=== PATIENT | female | born 1950 | race Caucasian/White ===

== ENCOUNTER 2017-05-22 21:42 | Inpatient (IN) | payer OTHER, MEDICARE ==
[~2017-05-22] VITALS: Ht 170.2 cm; Wt 86.2 kg
[2017-05-22] MEDS ORDERED: INSHNI SQ (22:29)
[2017-05-22] MEDS ORDERED: INSU100I SQ (22:29)
[2017-05-22] MEDS ORDERED: FRS/40 PO (22:29)
[2017-05-22] MEDS ORDERED: GABA-112 PO (22:29)
[2017-05-22] MEDS ORDERED: AMLO-110 PO (22:29)
[2017-05-22] MEDS ORDERED: ATOR-24 PO (22:29)
[2017-05-22] MEDS ORDERED: SEVE800T7 PO (22:33)
[2017-05-22] MEDS ORDERED: PANT40TA PO (22:33)
[2017-05-22] MEDS ORDERED: SPIR25TA PO (22:33)
[2017-05-22] MEDS ORDERED: HYDR-4717 PO (22:33)
[2017-05-22] MEDS ORDERED: EPGI10M SQ (22:33)
[2017-05-22] MEDS ORDERED: LEVO25TA5 PO (22:33)
[2017-05-22] MEDS ORDERED: LACT10SO17 PO (22:39)
[2017-05-22] MEDS ORDERED: [UNRECOGNIZED DRUG - OTHER] PO (22:39)
[2017-05-22] MEDS ORDERED: KFL/250 PO (22:39)
[2017-05-22] MEDS ORDERED: LORA-741 PO (22:39)
[2017-05-22] MEDS ORDERED: ONDA4TAB46 PO (22:39)
[2017-05-22] MEDS ORDERED: TRAM-10 PO (22:39)
[2017-05-22] MEDS ORDERED: CEFTRIAXONE SOD INJ 1 GM ADDVIAL IV STA (22:44)
[2017-05-22 23:43] LABS: BASO % 0.2 %; BASO ABS # 0.01 K/uL (0-0.2); COMPLETE YES; EOS % 10.4 %; HEMATOCRIT 29.7 % (37-47); IG% 1.1 %; LYMPH % 10.6 %; MEAN CELL VOLUME 96.4 fL (80-100); MEAN CORPUSCULAR HEMOGLOBIN 32.8 pg (25-34); MEAN PLATELET VOLUME 9.8 fL (7.4-10.4); MONO % 7.2 %; NEUT % 70.5 %; PLATELET COUNT 120 K/uL (130-400); RED BLOOD COUNT 3.08 M/uL (4.2-5.4); WHITE BLOOD COUNT 5.66 K/uL (4.8-10.8)
--- NOTE | 2017-05-22 23:48 | EMERGENCY ROOM VISIT NOTE ---
ED Visit Note First contact with patient: 22:30 I have seen and examined this patient with Naina Bernard and generally agree with the treatment plan as discussed. Current/Historical Medications Scheduled Amlodipine (Norvasc), 5 MG PO DAILY Atorvastatin (Lipitor), 40 MG PO QPM Cephalexin Monohydrate (Keflex), 1 TABS PO Q6 Epoetin Thomas (Procrit), SQ ON HOLD Furosemide (Lasix), 40 MG PO DAILY Gabapentin (Neurontin), 100 MG PO QAM Hydralazine Hcl (Apresoline), 100 MG PO TID Insulin Human NPH (Humulin N), 5 UNITS SQ BID Levothyroxine Sodium (Levothyroxine Sodium), 1 TAB PO DAILY Pantoprazole (Protonix), 40 MG PO DAILY Sevelamer Carbonate (Renvela), 1 TAB PO TIDM Spironolactone (Aldactone), 25 MG PO QAM [Careone Antacid], 1 DOSE PO PRN Scheduled PRN Insulin Lispro (Human) (Humalog), UNITS SQ BID PRN for bsg >200 Lactulose (Chronulac), 30 ML PO DAILY PRN for Constipation Lorazepam (Ativan), 0.5 MG PO QID PRN for Anxiety Ondansetron Hcl (Zofran), 4 MG PO Q8 PRN for Nausea Tramadol (Ultram), 50-100 MG PO Q4H PRN for Pain Allergies Coded Allergies: Nitrofurantoin (Verified Allergy, Unknown, UNKNOWN, 05/22/17) Sulfa Antibiotics (Verified Allergy, Unknown, UNKNOWN, 05/22/17) Vancomycin (Verified Allergy, Unknown, UNKNOWN, 05/22/17) Uncoded Allergies: GLUTEIN (Adverse Reaction, Unknown, FROM CELIAC DISEASE, 05/22/17) Vital Signs Date Time Temp Pulse Resp B/P (MAP) Pulse Ox O2 Delivery O2 Flow Rate FiO2 05/22/17 22:06 37.0 73 18 155/60 96 Room Air Laboratory Results 05/22/17 23:31 Red Blood Count 3.08, Mean Corpuscular Volume 96.4, Mean Corpuscular Hemoglobin 32.8, Mean Corpuscular Hemoglobin Concent 34.0, Mean Platelet Volume 9.8, Neutrophils (%) (Auto) 70.5, Lymphocytes (%) (Auto) 10.6, Monocytes (%) (Auto) 7.2, Eosinophils (%) (Auto) 10.4, Basophils (%) (Auto) 0.2, Neutrophils # (Auto ) 3.99, Lymphocytes # (Auto) 0.60, Monocytes # (Auto) 0.41, Eosinophils # (Auto ) 0.59, Basophils # (Auto) 0.01 Test 05/22/17 23:31 White Blood Count 5.66 K/uL (4.8-10.8) Red Blood Count 3.08 M/uL (4.2-5.4) Hemoglobin 10.1 g/dL (12.0-16.0) Hematocrit 29.7 % (37-47) Mean Corpuscular Volume 96.4 fL (80-100) Mean Corpuscular Hemoglobin 32.8 pg (25-34) Mean Corpuscular Hemoglobin Concent 34.0 g/dl (32-36) Platelet Count 120 K/uL (130-400) Mean Platelet Volume 9.8 fL (7.4-10.4) Neutrophils (%) (Auto) 70.5 % Lymphocytes (%) (Auto) 10.6 % Monocytes (%) (Auto) 7.2 % Eosinophils (%) (Auto) 10.4 % Basophils (%) (Auto) 0.2 % Neutrophils # (Auto) 3.99 K/uL (1.4-6.5) Lymphocytes # (Auto) 0.60 K/uL (1.2-3.4) Monocytes # (Auto) 0.41 K/uL (0.11-0.59) Eosinophils # (Auto) 0.59 K/uL (0-0.5) Basophils # (Auto) 0.01 K/uL (0-0.2) RDW Standard Deviation 45.9 fL (36.4-46.3) RDW Coefficient of Variation 13.2 % (11.5-14.5) Immature Granulocyte % (Auto) 1.1 % Immature Granulocyte # (Auto) 0.06 K/uL (0.00-0.02) Medications Administered Medications (Trade) Dose Ordered Sig/Joe Route Start Time Stop Time Status Last Admin Dose Admin Ceftriaxone Sodium (Rocephin Inj) 1 gm NOW STAT IV 05/22/17 22:44 05/22/17 22:50 DC 05/22/17 23:36 1 GM Departure Information Referrals Mau Vaca M.D. (PCP) Patient Instructions [facility]
[2017-05-23 00:03] LABS: BUN/CREATININE RATIO 33.3 (10-20); CALCIUM 8.2 mg/dl (8.5-10.1); CREATININE 1.67 mg/dl (0.60-1.20); POTASSIUM 4.4 mmol/L (3.5-5.1)
[2017-05-23 00:06] LABS: ALB/GLOB RATIO 0.9 (0.9-2)
[2017-05-23 00:24] LABS: PARTIAL THROMBOPLASTIN RATIO 0.9; PROTHROMBIN TIME (PATIENT) 11.2 SECONDS (9.0-12.0)
[2017-05-23] MEDS ORDERED: LORAZEPAM 0.5 MG TAB PO PRN (00:30)
[2017-05-23] MEDS ORDERED: TRAMADOL HCL 50 MG TAB PO PRN (00:30)
[2017-05-23] MEDS ORDERED: ACETAMINOPHEN 325 MG TAB PO PRN (00:30)
[2017-05-23] MEDS ORDERED: MoRPHine SULFATE 4 MG/ML 1 ML CARP\\VIAL IV PRN (00:30)
[2017-05-23] MEDS ORDERED: ALUMINUM/MAGNESIUM/SIMETH (MAALOX MAX) 30 ML UDC PO PRN (00:30)
[2017-05-23] MEDS ORDERED: MAGNESIUM HYDROXIDE SUSP 30 ML UDC PO PRN (00:30)
[2017-05-23] MEDS ORDERED: LACTULOSE SYRUP 20 GM/30 ML UDC PO PRN (00:30)
--- NOTE | 2017-05-23 00:50 | EMERGENCY ROOM VISIT NOTE ---
History First contact with patient: 22:30 Chief Complaint: LEG PAIN,LEG INJURY Stated Complaint: RT LEG RED History of Present Illness The patient is a 66 year old female who presents to the Emergency Room with complaints of worsening right lower leg infection who has a history of recurrent saline as to this leg. Patient just moved to this area from [place]. Patient states normally states vancomycin for the infection to her right lower leg. Patient states couple months ago she got nauseous from vancomycin but is not allergic. She states she can take this antibiotic. Patient saw her new family care doctor the other day was started on Keflex. Patient states since then the infection has gotten much worse. Patient states she feels fatigued. Patient denies chest pain, dyspnea, fever, chills, cough, congestion, vomiting, diarrhea, headache, cold symptoms. She believes her tetanus is up-to-date. Review of Systems See HPI for pertinent positives & negatives. A total of 10 systems reviewed and were otherwise negative. Past Medical/Surgical History Medical Problems: (1) Cellulitis Diabetes, cirrhosis, cholecystectomy, toe surgery, hysterectomy, cataract, hemorrhoids, shingles, neuropathy, depression, incontinence, anxiety, insomnia, renal failure, anemia Social History Smoking Status: Never Smoker Smokeless Tobacco Use: No Alcohol Use: none Drug Use: none Marital Status: single Current/Historical Medications Scheduled Amlodipine (Norvasc), 5 MG PO DAILY Atorvastatin (Lipitor), 40 MG PO QPM Cephalexin Monohydrate (Keflex), 1 TABS PO Q6 Epoetin Thomas (Procrit), SQ ON HOLD Furosemide (Lasix), 40 MG PO DAILY Gabapentin (Neurontin), 100 MG PO QAM Hydralazine Hcl (Apresoline), 100 MG PO TID Insulin Human NPH (Humulin N), 5 UNITS SQ BID Levothyroxine Sodium (Levothyroxine Sodium), 1 TAB PO DAILY Pantoprazole (Protonix), 40 MG PO DAILY Sevelamer Carbonate (Renvela), 1 TAB PO TIDM Spironolactone (Aldactone), 25 MG PO QAM [Careone Antacid], 1 DOSE PO PRN Scheduled PRN Insulin Lispro (Human) (Humalog), UNITS SQ BID PRN for bsg >200 Lactulose (Chronulac), 30 ML PO DAILY PRN for Constipation Lorazepam (Ativan), 0.5 MG PO QID PRN for Anxiety Ondansetron Hcl (Zofran), 4 MG PO Q8 PRN for Nausea Tramadol (Ultram), 50-100 MG PO Q4H PRN for Pain Physical Exam Vital Signs Date Time Temp Pulse Resp B/P (MAP) Pulse Ox O2 Delivery O2 Flow Rate FiO2 05/23/17 00:23 67 05/22/17 22:06 37.0 73 18 155/60 96 Room Air Physical Exam VITALS: Vitals are noted on the nurse's note and reviewed by myself. Vital signs stable. GENERAL: Pleasant female, in no acute distress, nondiaphoretic, well-developed well-nourished. SKIN: The skin was without rashes, erythema, edema, or bruising. There is no tenting of the skin. Capillary reflex less than 2 seconds. HEAD: Normocephalic atraumatic. EARS: External auditory canals clear, tympanic membranes pearly dos santos without erythema or effusion bilaterally. EYES: Pupils equal round and reactive to light and accommodation. Conjunctivae without injection, sclerae without icterus. Extraocular movements intact. NOSE: Patent, turbinates without inflammation or discharge. MOUTH: Mucous membranes moist. Pharynx without erythema or exudate. Uvula midline. Airway patent. Tongue does not deviate. NECK: Supple without nuchal rigidity. No lymphadenopathy. No thyromegaly. Cervical spine is nontender. No JVD. HEART: Regular rate and rhythm LUNGS: Clear to auscultation bilaterally without wheezes, rales or rhonchi. No dullness to percussion. No retractions or accessory muscle use. ABDOMEN: Positive bowel sounds x 4. Normal tympanic percussion. Soft, protuberant, obese, nontender, without masses or organomegaly. Ellis sign negative. No guarding or rebound tenderness. MUSCULOSKELETAL: No muscle atrophy, edema noted. Right lower leg with abrasion present with surrounding erythema concerning for cellulitis not involving the foot. Pedal pulses +2 equal present bilaterally. Venous stasis dermatitis unchanged per family and patient. NEURO: Patient was alert and oriented to person place and time. Normal sensation to light and sharp touch. No focal neurological deficits. Medical Decision & Procedures Laboratory Results 05/22/17 23:31 Red Blood Count 3.08, Mean Corpuscular Volume 96.4, Mean Corpuscular Hemoglobin 32.8, Mean Corpuscular Hemoglobin Concent 34.0, Mean Platelet Volume 9.8, Neutrophils (%) (Auto) 70.5, Lymphocytes (%) (Auto) 10.6, Monocytes (%) (Auto) 7.2, Eosinophils (%) (Auto) 10.4, Basophils (%) (Auto) 0.2, Neutrophils # (Auto ) 3.99, Lymphocytes # (Auto) 0.60, Monocytes # (Auto) 0.41, Eosinophils # (Auto ) 0.59, Basophils # (Auto) 0.01 05/22/17 23:31 Test 05/22/17 23:31 05/22/17 23:32 White Blood Count 5.66 K/uL (4.8-10.8) Red Blood Count 3.08 M/uL (4.2-5.4) Hemoglobin 10.1 g/dL (12.0-16.0) Hematocrit 29.7 % (37-47) Mean Corpuscular Volume 96.4 fL (80-100) Mean Corpuscular Hemoglobin 32.8 pg (25-34) Mean Corpuscular Hemoglobin Concent 34.0 g/dl (32-36) Platelet Count 120 K/uL (130-400) Mean Platelet Volume 9.8 fL (7.4-10.4) Neutrophils (%) (Auto) 70.5 % Lymphocytes (%) (Auto) 10.6 % Monocytes (%) (Auto) 7.2 % Eosinophils (%) (Auto) 10.4 % Basophils (%) (Auto) 0.2 % Neutrophils # (Auto) 3.99 K/uL (1.4-6.5) Lymphocytes # (Auto) 0.60 K/uL (1.2-3.4) Monocytes # (Auto) 0.41 K/uL (0.11-0.59) Eosinophils # (Auto) 0.59 K/uL (0-0.5) Basophils # (Auto) 0.01 K/uL (0-0.2) RDW Standard Deviation 45.9 fL (36.4-46.3) RDW Coefficient of Variation 13.2 % (11.5-14.5) Immature Granulocyte % (Auto) 1.1 % Immature Granulocyte # (Auto) 0.06 K/uL (0.00-0.02) Prothrombin Time 11.2 SECONDS (9.0-12.0) Prothromb Time International Ratio 1.0 (0.9-1.1) Activated Partial Thromboplast Time 24.5 SECONDS (21.0-31.0) Partial Thromboplastin Ratio 0.9 Anion Gap 8.0 mmol/L (3-11) Est Creatinine Clear Calc Drug Dose 36.5 ml/min Estimated GFR () 36.1 Estimated GFR (Non- 31.1 BUN/Creatinine Ratio 33.3 (10-20) Calcium Level 8.2 mg/dl (8.5-10.1) Total Bilirubin 0.3 mg/dl (0.2-1) Aspartate Amino Transf (AST/SGOT) 17 U/L (15-37) Alanine Aminotransferase (ALT/SGPT) 20 U/L (12-78) Alkaline Phosphatase 112 U/L (45-117) Total Protein 7.0 gm/dl (6.4-8.2) Albumin 3.3 gm/dl (3.4-5.0) Globulin 3.7 gm/dl (2.5-4.0) Albumin/Globulin Ratio 0.9 (0.9-2) Bedside Lactic Acid Venous 1.13 mmol/L (0.90-1.70) Medications Administered Medications (Trade) Dose Ordered Sig/Joe Route Start Time Stop Time Status Last Admin Dose Admin Ceftriaxone Sodium (Rocephin Inj) 1 gm NOW STAT IV 05/22/17 22:44 05/22/17 22:50 DC 05/22/17 23:36 1 GM ED Course Prior records reviewed and summarized as above. Triage Nursing notes reviewed. Additional history obtained from family The patient's history was concerning for swelling and redness of the skin. Differential diagnosis: Etiologies such as cellulitis, abscess, MRSA infection, DVT, necrotizing fasciitis, dermatitis, drug eruption, as well as others were entertained.. Physical examination: The physical examination was consistent with cellulitis ER treatment provided: Rocephin, vancomycin. Patient states she is not allergic to vancomycin. On reassessment the patient felt better. Diagnostics interpreted by me: The labs revealed mild anemia. Slightly elevated creatinine Imaging studies: Negative for DVT and Ascites Consultation: A consultation was placed with Dr Young, hospitalist. The case was discussed and diagnostics were reviewed. The patient was evaluated in the ER for further treatment. I had the confidential secretary contact the other hospitals for the patient's medical history as she's never been here before. There was no response. This appears to be isolated cellulitis he was failed outpatient treatment and symptoms of gotten worse. Patient will be evaluated by medicine. A wound culture was taken and sent. Patient no leukocytosis. She is afebrile. Patient has a history of recurrent cellulitis to this leg. She normally requires IV antibiotics. By the evaluation outlined above emergent etiologies such as abscess, necrotizing fasciitis, DVT, as well as others were deemed relatively unlikely. The pt informed about the findings as listed above. All questions were answered and pleased with the treatment. Case reviewed with my attending. Medical Decision As above Medication Reconcilliation Current Medication List: was personally reviewed by me Blood Pressure Screening Patient's blood pressure: Elevated blood pressure Blood pressure disposition: Elevated BP felt to be situational, Referred to PCP Impression Primary Impression: Cellulitis of right lower leg Additional Impression: Failure of outpatient treatment Departure Information Dispostion Being Evaluated By Hospitalist Condition FAIR Referrals Mau Vaca M.D. (PCP) Patient Instructions [facility] Problem Qualifiers
--- NOTE | 2017-05-23 01:09 | History and Physical ---
History & Physical Date & Time of Service: May 23, 2017 at 00:44 Chief Complaint: Rt Leg Red Primary Care Physician: Mau Vaca M.D. History of Present Illness Source: patient 66 y/o F Complex medical history includes HTN, CKD III, HPL, DMII, anemia, CHF, Neuropathy, cirrhosis with ascites. Pt relocated from [place] in March and has not previously attended our facility. She had visited her new PCP earlier in the week due to cellulitis on her RLE. She was placed on Keflex, however, the cellulitis has spread over the majority of her distal RLE. She denies any fevers or rigors. Past Medical/Surgical History 1) HTN 2) HPL 3) CKD III 4) DM II 5) Neuropathy 6) CHF - unspecified 7) Cirrhosis with ascites 8) Chronic unstable gait 9) Hypothyroidism 10) Anemia Surgical: Hysterectomy Cholecystectomy Cataracts Family History Noncontributory Social History Smoking Status: Never Smoker Allergies Coded Allergies: Nitrofurantoin (Verified Allergy, Unknown, UNKNOWN, 05/22/17) Sulfa Antibiotics (Verified Allergy, Unknown, UNKNOWN, 05/22/17) Vancomycin (Verified Allergy, Unknown, UNKNOWN, 05/22/17) Uncoded Allergies: GLUTEIN (Adverse Reaction, Unknown, FROM CELIAC DISEASE, 05/22/17) Home Medications Scheduled Amlodipine (Norvasc), 5 MG PO DAILY Atorvastatin (Lipitor), 40 MG PO QPM Cephalexin Monohydrate (Keflex), 1 TABS PO Q6 Epoetin Thomas (Procrit), SQ ON HOLD Furosemide (Lasix), 40 MG PO DAILY Gabapentin (Neurontin), 100 MG PO QAM Hydralazine Hcl (Apresoline), 100 MG PO TID Insulin Human NPH (Humulin N), 5 UNITS SQ BID Levothyroxine Sodium (Levothyroxine Sodium), 1 TAB PO DAILY Pantoprazole (Protonix), 40 MG PO DAILY Sevelamer Carbonate (Renvela), 1 TAB PO TIDM Spironolactone (Aldactone), 25 MG PO QAM [Careone Antacid], 1 DOSE PO PRN Scheduled PRN Insulin Lispro (Human) (Humalog), UNITS SQ BID PRN for bsg >200 Lactulose (Chronulac), 30 ML PO DAILY PRN for Constipation Lorazepam (Ativan), 0.5 MG PO QID PRN for Anxiety Ondansetron Hcl (Zofran), 4 MG PO Q8 PRN for Nausea Tramadol (Ultram), 50-100 MG PO Q4H PRN for Pain Review of Systems Constitutional: No fever, No chills, No sweats Eyes: No worsening of vision ENT: No hearing loss, No unusual epistaxis, No nasal symptoms Respiratory: No cough, No wheezing Cardiovascular: No chest pain Abdomen: No pain, No nausea, No vomiting Musculoskeletal: + problem reported (RLE pain), No joint pain, No muscle pain Genitourinary - Female: No dysuria, No urinary frequency, No urinary urgency Neurologic: No memory loss, No paralysis, No weakness Psychiatric: No depression symptoms Endocrine: No fatigue Hematologic / Lymphatic: No abnormal bleeding/bruising Integumentary: + problem reported (Cellulitis as above) Allergic / Immunologic: No environmental allergies Physical Exam Vital Signs Date Time Temp Pulse Resp B/P (MAP) Pulse Ox O2 Delivery O2 Flow Rate FiO2 05/22/17 22:06 37.0 73 18 155/60 96 Room Air General Appearance: WD/WN, no apparent distress Head: normocephalic ENT: normal ENT inspection, pharynx normal Neck: supple, no JVD Respiratory/Chest: chest non-tender, lungs clear, normal breath sounds Cardiovascular: no edema, no gallop, no JVD, + systolic murmur, + pertinent finding (Prominent click and slight systolic murmur - frequent PVCs) Abdomen/GI: normal bowel sounds, non tender, + pertinent finding (Soft/ distended abdomen ) Back: normal inspection, no CVA tenderness, no muscle spasm Extremities/Musculoskelatal: + pertinent finding (No edema - muscle wasting present - erythema of RLE - ) Neurologic/Psych: senior estimator II-XII nml as tested, no motor/sensory deficits, alert, normal mood/affect, normal reflexes, oriented x 3 Skin: + pertinent finding (RLE cellulitis - sparing foot) Diagnostics Laboratory Results Results Past 24 Hours Test 05/22/17 23:31 05/22/17 23:32 Range/Units White Blood Count 5.66 4.8-10.8 K/uL Red Blood Count 3.08 4.2-5.4 M/uL Hemoglobin 10.1 12.0-16.0 g/dL Hematocrit 29.7 37-47 % Mean Corpuscular Volume 96.4 80-100 fL Mean Corpuscular Hemoglobin 32.8 25-34 pg Mean Corpuscular Hemoglobin Concent 34.0 32-36 g/dl Platelet Count 120 130-400 K/uL Mean Platelet Volume 9.8 7.4-10.4 fL Neutrophils (%) (Auto) 70.5 % Lymphocytes (%) (Auto) 10.6 % Monocytes (%) (Auto) 7.2 % Eosinophils (%) (Auto) 10.4 % Basophils (%) (Auto) 0.2 % Neutrophils # (Auto) 3.99 1.4-6.5 K/uL Lymphocytes # (Auto) 0.60 1.2-3.4 K/uL Monocytes # (Auto) 0.41 0.11-0.59 K/uL Eosinophils # (Auto) 0.59 0-0.5 K/uL Basophils # (Auto) 0.01 0-0.2 K/uL RDW Standard Deviation 45.9 36.4-46.3 fL RDW Coefficient of Variation 13.2 11.5-14.5 % Immature Granulocyte % (Auto) 1.1 % Immature Granulocyte # (Auto) 0.06 0.00-0.02 K/uL Prothrombin Time 11.2 9.0-12.0 SECONDS Prothromb Time International Ratio 1.0 0.9-1.1 Activated Partial Thromboplast Time 24.5 21.0-31.0 SECONDS Partial Thromboplastin Ratio 0.9 Sodium Level 144 136-145 mmol/L Potassium Level 4.4 3.5-5.1 mmol/L Chloride Level 110 98-107 mmol/L Carbon Dioxide Level 26 21-32 mmol/L Anion Gap 8.0 3-11 mmol/L Blood Urea Nitrogen 56 7-18 mg/dl Creatinine 1.67 0.60-1.20 mg/dl Est Creatinine Clear Calc Drug Dose 36.5 ml/min Estimated GFR () 36.1 Estimated GFR (Non- 31.1 BUN/Creatinine Ratio 33.3 10-20 Random Glucose 114 70-99 mg/dl Calcium Level 8.2 8.5-10.1 mg/dl Total Bilirubin 0.3 0.2-1 mg/dl Aspartate Amino Transf (AST/SGOT) 17 15-37 U/L Alanine Aminotransferase (ALT/SGPT) 20 12-78 U/L Alkaline Phosphatase 112 45-117 U/L Total Protein 7.0 6.4-8.2 gm/dl Albumin 3.3 3.4-5.0 gm/dl Globulin 3.7 2.5-4.0 gm/dl Albumin/Globulin Ratio 0.9 0.9-2 Bedside Lactic Acid Venous 1.13 0.90-1.70 mmol/L Microbiology Results 05/22/17 Blood Culture, Received Pending 05/22/17 Blood Culture, Received Pending 05/22/17 Gram Stain, Received Pending 05/22/17 Wound Culture, Received Pending Impression Assessment and Plan 66 y/o F Complex medical history includes HTN, CKD III, HPL, anemia, DMII, CHF, Neuropathy, cirrhosis with ascites. Pt relocated from [place] in March and has not previously attended our facility. She had visited her new PCP earlier in the week due to cellulitis on her RLE. She was placed on Keflex, however, the cellulitis has spread over the majority of her distal RLE. She denies any fevers or rigors. 1) Cellulitis - Placed on Vanc and Ceftriaxone - area delineated 2) CHF - unspecified type/severity - Pt is euvolemic without crackles, JVD or edema on admission - cont Lasix, Aldactone. 3) CKD - technically stage 3 - it is noted that she requires Sevelamer and Epo presently - will trend BMP with admin of Vanc - she has previously tolerated. 4) DM II - placed on SS 5) Cirrhosis w/ascites - likely [place] - cont Lasix, Aldactone. 6) Neuropathy - cont Kit 7) Anemia - Hb possibly at baseline - trend - takes monthly Epo Full code - Heparin prophylaxis Total time for this admit including review of labs, meds - discussion with pt and ER attending - 37 min We are pending records from [place] at time of admission Level of Care Med/Surg Resuscitation Status FULL RESUSCITATION VTE Prophylaxis VTE Risk Assessment Done? Y/N: Yes Risk Level: Moderate Given or contraindicated: Unfractionated heparin SQ
[2017-05-23 02:18] VITALS: BP 170/70; PULSE 65; TEMP 36.7; O2SAT 94; Ht 170.2 cm; Wt 86.2 kg
[2017-05-23] MEDS ORDERED: POLYETHYLENE (MIRALAX) 17 GM PACK PO PRN (02:30)
[2017-05-23] MEDS ORDERED: DAPTOMYCIN CONSULT ACTIVE PRN ×2 (03:45)
[2017-05-23] MEDS: DAPTOmycin IV 350 MG in SYRINGE 0 ML IV SCH (04:56)
[2017-05-23] MEDS: LEVOTHYROXINE 25 MCG TAB PO SCH (04:57)
[2017-05-23] MEDS: HEPARIN SOD 5000 UNIT/0.5 ML CARP SQ SCH ×3 (05:01→21:14)
--- NOTE | 2017-05-23 07:08 | DIAGNOSTIC IMAGING REPORT ---
RIGHT LOWER EXTREMITY VENOUS DOPPLER HISTORY: right leg swelling, ? DVT COMPARISON STUDY: None. FINDINGS: There is normal compressibility, flow, and augmentation within the right lower extremity deep venous system. IMPRESSION: No DVT within the right lower extremity Electronically signed by: Hilton Lee M.D. 05/23/2017 7:07 AM Dictated Date/Time: 05/23/2017 7:07 AM
[2017-05-23 07:11] VITALS: BP 151/53; PULSE 60; TEMP 36.6; O2SAT 92
--- NOTE | 2017-05-23 07:19 | DIAGNOSTIC IMAGING REPORT ---
ULTRASOUND ASCITES CHECK CLINICAL HISTORY: Cirrhosis. COMPARISON STUDY: No priors. FINDINGS: Real-time grayscale sonography of all 4 quadrants of the abdomen was performed to assess for abdominal ascites. No abdominal ascites is seen. Survey images of the liver demonstrates cirrhotic morphology. The kidneys demonstrate cortical atrophy. IMPRESSION: No abdominal ascites is identified. Electronically signed by: Colton Hurt M.D. 05/23/2017 7:17 AM Dictated Date/Time: 05/23/2017 7:17 AM
[2017-05-23 07:25] LABS: HEMATOCRIT 28.6 % (37-47); MEAN CORPUSCULAR HEMOGLOBIN 32.6 pg (25-34); MEAN CORPUSCULAR HGB CONC 33.9 g/dl (32-36); MEAN PLATELET VOLUME 9.8 fL (7.4-10.4); PLATELET COUNT 105 K/uL (130-400); RED BLOOD COUNT 2.98 M/uL (4.2-5.4); WHITE BLOOD COUNT 4.89 K/uL (4.8-10.8)
[2017-05-23 07:57] LABS: BUN/CREATININE RATIO 34.7 (10-20); CALCIUM 8.3 mg/dl (8.5-10.1); CREATININE 1.48 mg/dl (0.60-1.20); MAGNESIUM 2.3 mg/dl (1.8-2.4); POTASSIUM 4.1 mmol/L (3.5-5.1)
[2017-05-23] MEDS: FUROSEMIDE 40 MG TAB PO SCH (08:35)
[2017-05-23] MEDS: GABAPENTIN 100 MG CAP PO SCH (08:36)
[2017-05-23] MEDS: PANTOprazole SOD 40 MG TAB PO SCH (08:36)
[2017-05-23] MEDS: SEVELAMER HYDROCH 800 MG TAB PO SCH ×3 (08:36→16:53)
[2017-05-23] MEDS: SPIRONOLACTONE 25 MG TAB PO SCH (08:37)
[2017-05-23] MEDS: AMLODIPINE BESYLATE 5 MG TAB PO SCH (08:37)
[2017-05-23] MEDS ORDERED: VANCOMYCIN INJ 500 MG in SODIUM CHLORIDE 0.9% 250ML 250 ML IV SCH (09:00)
[2017-05-23 09:59] VITALS: O2SAT 92
--- NOTE | 2017-05-23 11:15 | Progress Note ---
Progress Note Date of Service May 23, 2017. Progress Note ID Consult Dictated #[id number] A/P: 1. RLE wound -Continue abx ,follow culture -thank you
--- NOTE | 2017-05-23 11:39 | INFECT. DISEASE CONSULTATION ---
DATE OF CONSULTATION: 05/23/2017 REQUESTING PHYSICIAN: Dr. Young. HISTORY OF PRESENT ILLNESS: This is a 66-year-old female who recently located to the area and was admitted to the hospital secondary to concerns for right lower extremity cellulitis. She does have chronic changes to both lower extremities and does have neuropathy. She does have a scab over the anterior calf. She denies any trauma to the area. She denies any pain secondary to neuropathy. She denies any fevers or chills. She recently saw her family physician and was given a course of Keflex. She did not have improvement and then was subsequently sent to the ER for IV antibiotics. She was started on ceftriaxone and daptomycin. Infectious diseases was consulted for clearance for daptomycin use. She states she has had vancomycin multiple times in the past, but had one episode of vomiting after vancomycin, which she thought was due to diabetes, but was told SHE IS ALLERGIC TO VANCOMYCIN. She denies any history of rash, hives or red man syndrome with vancomycin. She currently denies any pain in the legs. She has no nausea, vomiting, diarrhea, chest pain or abdominal pain. All remaining review of systems reviewed and unremarkable. PAST MEDICAL HISTORY: Significant for hypertension, high cholesterol, chronic kidney disease, type 2 diabetes, neuropathy, CHF, cirrhosis with ascites, hypothyroidism and anemia. PAST SURGICAL HISTORY: Significant for hysterectomy, cholecystectomy, and cataract surgery. SOCIAL HISTORY: Negative for tobacco use, alcohol use or drug use. FAMILY HISTORY: Noncontributory. ALLERGIES: SHE HAS ALLERGIES TO SULFA, NITROFURANTOIN AND QUESTIONABLE VANCOMYCIN, BUT DOES NOT REPORT A TRUE ALLERGY. CURRENT MEDICATIONS: Include Rocephin, Lipitor, Norvasc, Lasix, Neurontin, hydralazine, Protonix, Aldactone, Renagel, Synthroid, subQ heparin, daptomycin, MiraLax, lactulose, Ativan, Ultram, morphine, Tylenol, Maalox, and milk of magnesia. PHYSICAL EXAMINATION: VITAL SIGNS: She is afebrile, pulse 60, respiratory rate 17, blood pressure 151/53, and oxygen saturation is 92% on room air. GENERAL: She is awake, alert and oriented x3. She is in no acute distress. HEENT: Mucous membranes are moist. Extraocular muscles are intact. HEART: Regular. LUNGS: Clear. ABDOMEN: Soft. EXTREMITIES: Lower extremities reveal no edema. There are chronic stasis changes bilaterally. There is a scab on the right anterior calf. There is no surrounding erythema, fluctuance, edema or purulent drainage. There is minimal warmth and tenderness to palpation. LABORATORY STUDIES: CBC reveals a white blood cell count of 4.8, hemoglobin 9.7, and platelets are 105. Chemistry panel reveals a sodium of 144, potassium 4.1, chloride 110, bicarbonate 27, BUN 51, creatinine 1.4, and glucose is 129. LFTs are within normal limits. Hep C antibody is negative. Wound culture has a negative gram stain, culture is pending. Blood cultures are pending. Dopplers were negative. An abdominal ultrasound did show no abdominal ascites. ASSESSMENT AND PLAN: Lower extremity wound. I do not see any significant cellulitis and suspected her discoloration is chronic and it is bilateral. That being said, she can be continued on empiric antibiotic course pending the results of wound and blood cultures. Thank you for this consultation. CODY
[2017-05-23 15:27] VITALS: BP 145/69; PULSE 69; TEMP 37.1; O2SAT 93
[2017-05-23] MEDS: ATORVASTATIN 40 MG TAB PO SCH (21:11)
[2017-05-23] MEDS: CEFTRIAXONE SOD INJ 1 GM in DEXTROSE 5% ADD-VANTAGE 50ML 50 ML IV SCH (23:26)
[2017-05-23 23:44] VITALS: BP 138/66; PULSE 59; TEMP 36.6; O2SAT 95
[2017-05-24] MEDS: DAPTOmycin IV 350 MG in SYRINGE 0 ML IV SCH (03:14)
[2017-05-24] MEDS: LEVOTHYROXINE 25 MCG TAB PO SCH (05:40)
[2017-05-24] MEDS: HEPARIN SOD 5000 UNIT/0.5 ML CARP SQ SCH ×4 (05:42→20:18)
[2017-05-24 07:30] VITALS: BP 175/70; PULSE 68; TEMP 36.5; O2SAT 96
[2017-05-24] MEDS: ONDANSETRON INJ 2 MG/ML 2 ML VIAL IV PRN ×2 (07:34→14:13)
[2017-05-24 07:35] VITALS: O2SAT 96
[2017-05-24 08:06] LABS: CREATININE 1.55 mg/dl (0.60-1.20)
[2017-05-24] MEDS: GABAPENTIN 100 MG CAP PO SCH (09:33)
[2017-05-24] MEDS: AMLODIPINE BESYLATE 5 MG TAB PO SCH (09:34)
[2017-05-24] MEDS: PANTOprazole SOD 40 MG TAB PO SCH (09:34)
[2017-05-24] MEDS: FUROSEMIDE 40 MG TAB PO SCH (09:35)
[2017-05-24] MEDS: SEVELAMER HYDROCH 800 MG TAB PO SCH ×3 (09:35→18:28)
[2017-05-24] MEDS: SPIRONOLACTONE 25 MG TAB PO SCH (09:36)
--- NOTE | 2017-05-24 09:40 | Progress Note ---
Subjective Date of Service: May 24, 2017. Subjective Pt evaluation today including: conversation w/ patient, physical exam, chart review, lab review, review of studies 66 yo female who is in the hospital for her redness in her right lower extremities. Patient though states that this has occurred over the past week and was sudden. She states that ID provider believed that this may not be infectious. Patient currenlty denies any fever, chills, nausea, vomiting. Problem List Medical Problems: (1) Cellulitis of right lower leg Status: Acute (2) Failure of outpatient treatment Status: Acute Review of Systems Constitutional: No fever Respiratory: No cough, No sputum Cardiac: No chest pain, No orthopnea Abdomen: No pain, No nausea Endo: No fatigue Skin: + rash All Other Systems: Reviewed and Negative Objective Vital Signs Date Time Temp Pulse Resp B/P (MAP) Pulse Ox O2 Delivery O2 Flow Rate FiO2 05/24/17 07:35 96 Room Air 05/24/17 07:30 36.5 68 18 175/70 (105) 96 05/24/17 00:00 Room Air 05/23/17 23:44 36.6 59 18 138/66 (90) 95 Room Air 05/23/17 16:00 Room Air 05/23/17 15:27 37.1 69 18 145/69 (94) 93 Room Air 05/23/17 09:59 92 Room Air Physical Exam General Appearance: WD/WN, no apparent distress Neck: supple, no adenopathy Respiratory/Chest: chest non-tender, lungs clear, normal breath sounds Cardiovascular: regular rate, rhythm, no edema, no JVD Abdomen: normal bowel sounds, non tender, soft Skin: + pertinent finding (chronic venous changes in bilateral lower extremities, no warmth, or tenderness to palpation.) Lymphatic: no adenopathy Laboratory Results Last 24 Hours Test 05/23/17 11:41 05/23/17 16:22 05/24/17 07:22 05/24/17 07:32 Bedside Glucose 159 mg/dl 150 mg/dl 146 mg/dl Creatinine 1.55 mg/dl Est Creatinine Clear Calc Drug Dose 38.8 ml/min Estimated GFR () 39.5 Estimated GFR (Non- 34.1 Assessment and Plan Assessment and Plan 66 y/o F Complex medical history includes HTN, CKD III, HPL, anemia, DMII, CHF, Neuropathy, cirrhosis with ascites. Pt relocated from [place] in March and has not previously attended our facility. She had visited her new PCP earlier in the week due to cellulitis on her RLE. She was placed on Keflex, however, the cellulitis has spread over the majority of her distal RLE. She denies any fevers or rigors. 1) Cellulitis -ID on board. will continue on current antibiotics as cultures are still pending. 2) CHF - unspecified type/severity - Pt is euvolemic without crackles, JVD or edema on admission - cont Lasix, Aldactone. 3) CKD - technically stage 3 - it is noted that she requires Sevelamer and Epo presently - will trend BMP with admin of Vanc - she has previously tolerated. 4) DM II - placed on SS 5) Cirrhosis w/ascites - likely ALSTON - cont Lasix, Aldactone. 6) Neuropathy - cont Kit 7) Anemia - Hb possibly at baseline - trend - takes monthly Epo Full code - Heparin prophylaxis
[2017-05-24 09:44] VITALS: BP 149/55; PULSE 63
[2017-05-24 14:57] VITALS: BP 132/68; PULSE 58; TEMP 36.5; O2SAT 90
[2017-05-24 20:23] VITALS: BP 113/64; PULSE 54; TEMP 36.6; O2SAT 92
[2017-05-24] MEDS: ATORVASTATIN 40 MG TAB PO SCH (20:27)
[2017-05-24] MEDS: CEFTRIAXONE SOD INJ 1 GM in DEXTROSE 5% ADD-VANTAGE 50ML 50 ML IV SCH (22:54)
[2017-05-25] VITALS: BP 129/68; PULSE 50; TEMP 36.4; O2SAT 94
[2017-05-25] MEDS: DAPTOmycin IV 350 MG in SYRINGE 0 ML IV SCH (04:20)
[2017-05-25] MEDS: HEPARIN SOD 5000 UNIT/0.5 ML CARP SQ SCH (06:00)
[2017-05-25] MEDS: LEVOTHYROXINE 25 MCG TAB PO SCH (06:35)
[2017-05-25 07:25] VITALS: BP 114/58; PULSE 49; TEMP 36.6; O2SAT 92
[2017-05-25 07:41] LABS: CREATININE 1.69 mg/dl (0.60-1.20)
[2017-05-25 08:00] VITALS: O2SAT 96
[2017-05-25] MEDS ORDERED: CEPHALEXIN MONOHYDRATE 500 MG CAP PO ONE (10:14)
[2017-05-25] MEDS: SEVELAMER HYDROCH 800 MG TAB PO SCH ×2 (10:36→13:44)
[2017-05-25] MEDS: PANTOprazole SOD 40 MG TAB PO SCH (10:36)
[2017-05-25] MEDS: GABAPENTIN 100 MG CAP PO SCH (10:37)
[2017-05-25] MEDS: SPIRONOLACTONE 25 MG TAB PO SCH (10:37)
[2017-05-25] MEDS: AMLODIPINE BESYLATE 5 MG TAB PO SCH (10:38)
[2017-05-25] MEDS: FUROSEMIDE 40 MG TAB PO SCH (10:38)
[2017-05-25] MEDS ORDERED: KFL500 PO (12:44)
--- NOTE | 2017-05-25 12:46 | Discharge Instructions ---
Discharge Instructions Date of Service May 25, 2017. Admission Reason for Admission: Cellulitis Discharge Discharge Diagnosis / Problem: right lower leg wound/ cellulitis Discharge Goals Goal(s): Decrease discomfort, Improve function Activity Recommendations Activity Limitations: resume your previous activity . Instructions / Follow-Up Instructions / Follow-Up F/U with PCP in 1 week F/U with wound clinic in 1 week Current Hospital Diet Patient's current hospital diet: Renal Diet, Gluten Free Diet, Diabetes Type 2 Diet Discharge Diet Recommended Diet: Diabetes Type 2 Diet, Renal Diet, Gluten Free Diet Pending Studies Studies pending at discharge: no Medical Emergencies . Who to Call and When: Medical Emergencies: If at any time you feel your situation is an emergency, please call 911 immediately. . Non-Emergent Contact Non-Emergency issues call your: Primary Care Provider Call Non-Emergent contact if: your pain is not controlled, your pain is worsening . . "Provider Documentation" section prepared by Mau Mckee. . VTE Core Measure Inpt VTE Proph given/why not?: Unfractionated heparin SQ
[2017-05-25 13:39] VITALS: BP 114/58; PULSE 49; TEMP 36.6; O2SAT 96
[2017-05-25] MEDS ORDERED: CEPHALEXIN MONOHYDRATE 500 MG CAP PO SCH (20:00)
--- NOTE | 2017-06-02 08:26 | Discharge Summary ---
Discharge Summary Date of Service May 25, 2017. Discharge Summary Admission Date: May 23, 2017 at 00:25 Discharge Date: May 25, 2017 Discharge Disposition: Home Principal Diagnosis: Right lower extremity cellulitis Problems/Secondary Diagnoses: Bilateral skin changes secondary to venous stasis Consultations: ID DICTATED BY: Jennifer. Helms D.O. *NOTICE TO RECEIVING CONSTITUTION PARTY/AGENCY This information is strictly Confidential and protected under [place] law. [place] law prohibits you from making any further disclosure of this information unless further disclosure is expressly permitted by the written consent of the person to whom it pertains or is authorized by law. A general authorization for the release of medical or other information is not sufficient for this purpose. Hospital accepts no responsibility if the information is made available to any other person, INCLUDING THE PATIENT. DATE OF CONSULTATION: 05/23/2017 REQUESTING PHYSICIAN: Dr. Young. HISTORY OF PRESENT ILLNESS: This is a 66-year-old female who recently located to the area and was admitted to the hospital secondary to concerns for right lower extremity cellulitis. She does have chronic changes to both lower extremities and does have neuropathy. She does have a scab over the anterior calf. She denies any trauma to the area. She denies any pain secondary to neuropathy. She denies any fevers or chills. She recently saw her family physician and was given a course of Keflex. She did not have improvement and then was subsequently sent to the ER for IV antibiotics. She was started on ceftriaxone and daptomycin. Infectious diseases was consulted for clearance for daptomycin use. She states she has had vancomycin multiple times in the past, but had one episode of vomiting after vancomycin, which she thought was due to diabetes, but was told SHE IS ALLERGIC TO VANCOMYCIN. She denies any history of rash, hives or red man syndrome with vancomycin. She currently denies any pain in the legs. She has no nausea, vomiting, diarrhea, chest pain or abdominal pain. All remaining review of systems reviewed and unremarkable. PAST MEDICAL HISTORY: Significant for hypertension, high cholesterol, chronic kidney disease, type 2 diabetes, neuropathy, CHF, cirrhosis with ascites, hypothyroidism and anemia. PAST SURGICAL HISTORY: Significant for hysterectomy, cholecystectomy, and cataract surgery. SOCIAL HISTORY: Negative for tobacco use, alcohol use or drug use. FAMILY HISTORY: Noncontributory. ALLERGIES: SHE HAS ALLERGIES TO SULFA, NITROFURANTOIN AND QUESTIONABLE VANCOMYCIN, BUT DOES NOT REPORT A TRUE ALLERGY. CURRENT MEDICATIONS: Include Rocephin, Lipitor, Norvasc, Lasix, Neurontin, hydralazine, Protonix, Aldactone, Renagel, Synthroid, subQ heparin, daptomycin, MiraLax, lactulose, Ativan, Ultram, morphine, Tylenol, Maalox, and milk of magnesia. PHYSICAL EXAMINATION: VITAL SIGNS: She is afebrile, pulse 60, respiratory rate 17, blood pressure 151/53, and oxygen saturation is 92% on room air. GENERAL: She is awake, alert and oriented x3. She is in no acute distress. HEENT: Mucous membranes are moist. Extraocular muscles are intact. HEART: Regular. LUNGS: Clear. ABDOMEN: Soft. EXTREMITIES: Lower extremities reveal no edema. There are chronic stasis changes bilaterally. There is a scab on the right anterior calf. There is no surrounding erythema, fluctuance, edema or purulent drainage. There is minimal warmth and tenderness to palpation. LABORATORY STUDIES: CBC reveals a white blood cell count of 4.8, hemoglobin 9.7, and platelets are 105. Chemistry panel reveals a sodium of 144, potassium 4.1, chloride 110, bicarbonate 27, BUN 51, creatinine 1.4, and glucose is 129. LFTs are within normal limits. Hep C antibody is negative. Wound culture has a negative gram stain, culture is pending. Blood cultures are pending. Dopplers were negative. An abdominal ultrasound did show no abdominal ascites. ASSESSMENT AND PLAN: Lower extremity wound. I do not see any significant cellulitis and suspected her discoloration is chronic and it is bilateral. That being said, she can be continued on empiric antibiotic course pending the results of wound and blood cultures. Thank you for this consultation. [id number] <Electronically signed by Lacy Helms D.O.> S: 05/30/17 1435 ES Lacy Helms D.O. The status of this report is Signed. Draft = Not yet reviewed or approved by Medical Physician. Signed = Reviewed and approved by Medical Physician. Medication Reconciliation New Medications: Cephalexin Monohydrate (Cephalexin) 500 Mg Cap 500 MG PO BID for 6 Days, #12 CAP Take 1 capsule twice a day with meals Continued Medications: Amlodipine (Norvasc) 5 Mg Tab 5 MG PO DAILY, TAB Atorvastatin (Lipitor) 40 Mg Tab 40 MG PO QPM, TAB Epoetin Thomas (Procrit) 10,000 Units Inj SQ ON HOLD Furosemide (Lasix) 40 Mg Tab 40 MG PO DAILY, TAB Gabapentin (Neurontin) 100 Mg Cap 100 MG PO QAM, CAP Hydralazine Hcl (Apresoline) 50 Mg Tab 100 MG PO TID, TAB Insulin Human NPH (Humulin N) 100 Units/Ml Susp 5 UNITS SQ BID Insulin Lispro (Human) (Humalog) 100 Unit/Ml Inj UNITS SQ BID PRN for bsg >200 PER SLIDING SCALE Lactulose (Chronulac) 10 Gm/15 Ml Syrp 30 ML PO DAILY PRN for Constipation Levothyroxine Sodium (Levothyroxine Sodium) 25 Mcg Tab 1 TAB PO DAILY for 90 Days, #90 TAB 3 Refills Lorazepam (Ativan) 0.5 Mg Tab 0.5 MG PO QID PRN for Anxiety, TAB Ondansetron Hcl (Zofran) 4 Mg Tab 4 MG PO Q8 PRN for Nausea, TAB Pantoprazole (Protonix) 40 Mg Tab 40 MG PO DAILY, #30 TAB Sevelamer Carbonate (Renvela) 800 Mg Tab 1 TAB PO TIDM for 90 Days, TAB 3 Refills Spironolactone (Aldactone) 25 Mg Tab 25 MG PO QAM, TAB Tramadol (Ultram) 50 Mg Tab 50-100 MG PO Q4H PRN for Pain, TAB [[facility] Antacid] () 1 DOSE PO PRN Discontinued Medications: Cephalexin Monohydrate (Keflex) Unknown Strength Cap 1 TABS PO Q6, CAP Discharge Exam Review of Systems: Constitutional: No fever, No chills Cardiovascular: No chest pain, No orthopnea Abdomen: No pain, No nausea Neurologic: No memory loss, No paralysis Psychiatric: No depression symptoms, No anhedonism Endocrine: No fatigue, No excessive thirst Integumentary: + color change, No rash, No itch Physical Exam: General Appearance: WD/WN, no apparent distress Neck: supple, no adenopathy Respiratory/Chest: chest non-tender, lungs clear, normal breath sounds Cardiovascular: regular rate, rhythm, no edema, no gallop Abdomen / GI: normal bowel sounds, non tender, soft Skin: + pertinent finding (venous changes to bilateral lower extremities.) Hospital Course Assessment and Plan 66 y/o F Complex medical history includes HTN, CKD III, HPL, anemia, DMII, CHF, Neuropathy, cirrhosis with ascites. Pt relocated from [place] in March and has not previously attended our facility. She had visited her new PCP earlier in the week due to cellulitis on her RLE. She was placed on Keflex, however, the cellulitis has spread over the majority of her distal RLE. She denies any fevers or rigors. 1) Cellulitis -ID on board. Cultures showed MSSA. Will discharge on appropriate antibiotics Patient has improved. will f/u with PCP at end of treatment. 2) CHF - unspecified type/severity - Pt is euvolemic without crackles, JVD or edema on admission - cont Lasix, Aldactone. 3) CKD - technically stage 3 - it is noted that she requires Sevelamer and Epo presently - will trend BMP with admin of Vanc - she has previously tolerated. 4) DM II - placed on SS 5) Cirrhosis w/ascites - likely [place]STON - cont Lasix, Aldactone. 6) Neuropathy - cont Kit 7) Anemia - Hb possibly at baseline - trend - takes monthly Epo Full code - Heparin prophylaxis Total Time Spent: Greater than 30 minutes This includes examination of the patient, discharge planning, medication reconciliation, and communication with other providers. Discharge Instructions Please refer to the electronic Patient Visit Report (Discharge Instructions) for additional information. Follow-Up as stated in discharge instructions.
== END 2017-05-25 14:25 | disposition home or self-care (01) | DRG 603 ==
LOC: C.EDB 21:45 → C.MS4W 05-23 00:25 → ENRESERV 05-23 01:15
PROVIDERS: ADMIT Internal Medicine; ATTEND Internal Medicine
DX: L03.115 Cellulitis of right lower limb (principal); I13.0 Hypertensive heart and chronic kidney disease with heart failure and stage 1 through stage 4 chronic kidney disease, or unspecified chronic kidney disease; S81.801A Unspecified open wound, right lower leg, initial encounter; E11.22 Type 2 diabetes mellitus with diabetic chronic kidney disease; N18.3 Chronic kidney disease, stage 3 (moderate); I50.9 Heart failure, unspecified; D64.9 Anemia, unspecified; K75.81 Nonalcoholic steatohepatitis (NASH); E11.40 Type 2 diabetes mellitus with diabetic neuropathy, unspecified; E03.9 Hypothyroidism, unspecified; E78.00 Pure hypercholesterolemia, unspecified; Z51.81 Encounter for therapeutic drug level monitoring; Z79.899 Other long term (current) drug therapy; Z79.4 Long term (current) use of insulin; X58.XXXA Exposure to other specified factors, initial encounter; Y99.8 Other external cause status